=== PATIENT | female | born 1960 | race Two or more races ===

== ENCOUNTER 2018-07-05 19:33 | Emergency (ER) | payer MEDICAID, OTHER ==
[2018-07-05] MEDS ORDERED: fentaNYL 100 MCG/2 ML INJ IVP ONE (21:20)
[2018-07-05] MEDS ORDERED: IOPAMIDOL (ISOVUE 370) 100 ML BTL IV ONE (22:19)
[2018-07-05] MEDS ORDERED: OXYCODONE/APAP 5/325MG PREPACK#4 BTL TAKEHOME ONE (23:24)
== END 2018-07-05 23:41 | disposition home or self-care (01) ==
DX: R10.9 Unspecified abdominal pain (principal); M54.6 Pain in thoracic spine; F17.200 Nicotine dependence, unspecified, uncomplicated; Z88.0 Allergy status to penicillin